=== PATIENT | female | born 1955 | race Two or more races ===

== ENCOUNTER 2016-05-25 19:44 | Inpatient (IN) | payer MEDICAID ==
[~2016-05-25] VITALS: Ht 165.1 cm; Wt 119.7 kg
[2016-05-25] MEDS ORDERED: EPINEPHRINE 0.1MG/ML (1:10,000) 10ML SYR ONE (20:01)
[2016-05-25] MEDS ORDERED: PROPOFOL 10MG/ML 100ML 100 ML IV ONE (20:15)
[2016-05-25] MEDS ORDERED: PIPERACILLIN/TAZ 3.375G PREMIX 50 ML IV ONE (20:15)
[2016-05-25] MEDS ORDERED: SODIUM CHLORIDE 0.9% 1000ML BAG (SEPSIS BOLUS) IV ONE ×2 (20:15→21:15)
[2016-05-25 20:38] LABS: BASOPHILS % 0.4 % (0.0-2.0); DIFFERENTIAL COMMENT 0; EOSINOPHILS % 1.1 % (0.0-5.0); HEMATOCRIT. 38.5 % (36.0-48.0); HEMOGLOBIN. 11.4 g/dL (12.0-16.0); LYMPHOCYTES % 40.3 % (20.0-50.0); MEAN CORPUSCULAR HEMOGLOBIN 25.5 pg (28.0-32.0); MEAN CORPUSCULAR HGB CONC 29.7 g/dL (31.0-37.0); MEAN CORPUSCULAR VOLUME 85.8 fL (81.0-99.0); MEAN PLATELET VOLUME 9.2 fl (7.4-10.4); MONOCYTES % 2.7 % (2.0-8.0); NEUTROPHILS % 55.5 % (40.0-76.0); PLATELET 168 x1000/uL (130-400); RED BLOOD CELL COUNT 4.48 mill/uL (4.2-5.4); RED CELL DISTRIBUTION WIDTH 17.6 % (11.6-14.6); WHITE BLOOD COUNT 8.6 x1000/uL (4.5-11.0)
[2016-05-25] MEDS ORDERED: SODIUM BICARBONATE 8.4% 1 MEQ/ML 50ML SYR IV ONE (20:40)
[2016-05-25 20:43] LABS: INR 1.3; PROTHROMBIN TIME 13.3 sec
[2016-05-25] MEDS ORDERED: NOREPINEPHRINE 4 MG in DEXT 5% WATER 246 ML IV ONE (20:45)
[2016-05-25] MEDS ORDERED: CALCIUM CHLORIDE 1GM/10ML SYR IV ONE (20:47)
[2016-05-25 20:54] LABS: ALANINE AMINOTRANSFERASE 28 IU/L (13-61); ANION GAP 26; CALCIUM 9.6 mg/dL (8.5-10.1); CARBON DIOXIDE 22 mEq/L (21-32); CHLORIDE 105 mEq/L (98-107); ETHANOL BLOOD < 10 mg/dL; INDEX HEMOLYSI 2 (1-3); INDEX ICTERIC 1 (1-4); INDEX LIPEMIC 1 (1-3); LIPASE 373 IU/L (73-393); NT PRO B-TYPE NATRIURETIC PEP 2507 pg/mL (5-125); TROPONIN I < 0.02 ng/mL (0.00-0.04); UREA NITROGEN BLOOD 11 mg/dL (7-21); eGFR > 60 mL/min (>60)
[2016-05-25] MEDS ORDERED: NOREPINEPHRINE 4 MG in DEXT 5% WATER 246 ML IV NR (21:00)
[2016-05-25 21:08] LABS: LACTIC ACID 14.9 mmol/L (0.4-2.0)
[2016-05-25 23:03] LABS: BG BASE EXCESS -9.6 mmol/L (-2.0-2.0); BG CARBOXYHEMOGLOBIN 0.6 % (0.5-1.5); BG DEOXYHEMOGLOBIN 8.7 % (0.0-5.0); BG FRACTION INSPIRED OXYGEN 100; BG HCO3 ACT 21.1 mmol/L (22.0-26.0); BG METHEMOGLOBIN 0.3 % (0.0-1.5); BG OXYGEN SATURATION 91.2 % (92.0-98.5); BG OXYHEMOGLOBIN 90.4 % (94.0-97.0); BG PCO2 71.8 mmHg (35.0-45.0); BG PH 7.087 (7.350-7.450); BG PO2 80.4 mmHg (75.0-100.0); BG SAMPLE SITE RIGHT RADIAL; BG TIDAL VOLUME(mL) 500 mL; BG TOTAL HEMOGLOBIN 12.5 g/dL (12.0-18.0); BG VENT MODE VENT - A/C; BG VENT RATE 14 set
[2016-05-25] MEDS ORDERED: DEXAMETHASONE 10MG/ML 1ML VIAL IV ONE (23:15)
[2016-05-25] MEDS ORDERED: SODIUM CHLORIDE 0.9% 1,000 ML IV SCH (23:40)
[2016-05-25] MEDS ORDERED: IPRATROPIUM/ALBUTEROL 0.5-3(2.5)MG/3ML NEB INH PRN (23:45)
[2016-05-25] MEDS ORDERED: ONDANSETRON HCL 4MG/2ML VIAL IV PRN (23:45)
[2016-05-26] VITALS (83 sets, daily range): BP systolic 46–133; BP diastolic 17–103
[2016-05-26 00:05] LABS: MAGNESIUM 2.5 mg/dL (1.8-2.4)
[2016-05-26] MEDS ORDERED: PROPOFOL 10MG/ML 100ML 100 ML IV NR (00:45)
[2016-05-26] MEDS: PIPERACILLIN/TAZ 3.375G PREMIX 50 ML IV SCH ×2 (03:18→13:03)
[2016-05-26] MEDS: NOREPINEPHRINE 16 MG in DEXT 5% WATER 250 ML IV SCH ×2 (03:18→10:57)
[2016-05-26] MEDS: LEVETIRACETAM 500 MG in SODIUM CHLORIDE 0.9% 100 ML IV SCH ×2 (03:18→16:00)
[2016-05-26] MEDS ORDERED: VANCOMYCIN 1 G PREMIX 200 ML IV SCH (04:00)
[2016-05-26 05:35] LABS: HEMATOCRIT. 38.2 % (36.0-48.0); HEMOGLOBIN. 11.2 g/dL (12.0-16.0); MEAN CORPUSCULAR HEMOGLOBIN 25.5 pg (28.0-32.0); MEAN CORPUSCULAR HGB CONC 29.4 g/dL (31.0-37.0); MEAN CORPUSCULAR VOLUME 86.8 fL (81.0-99.0); MEAN PLATELET VOLUME 7.8 fl (7.4-10.4); PLATELET 135 x1000/uL (130-400); RED BLOOD CELL COUNT 4.41 mill/uL (4.2-5.4); RED CELL DISTRIBUTION WIDTH 18.7 % (11.6-14.6); WHITE BLOOD COUNT 15.7 x1000/uL (4.5-11.0)
[2016-05-26 05:51] LABS: DIFFERENTIAL COMMENT 1
[2016-05-26] MEDS ORDERED: SODIUM BICARBONATE 8.4% 1 MEQ/ML 50ML SYR IV SCH (06:30)
[2016-05-26 06:37] LABS: CREATINE KINASE MB FRACTION 14.6 ng/mL (0.5-3.6)
[2016-05-26 06:38] LABS: CHLORIDE 115 mEq/L (98-107); INDEX HEMOLYSI 1 (1-3); INDEX ICTERIC 1 (1-4); INDEX LIPEMIC 1 (1-3)
[2016-05-26 06:56] LABS: ALBUMIN 2.5 g/dL (3.4-5.0); ANION GAP 18; CALCIUM 8.9 mg/dL (8.5-10.1); CARBON DIOXIDE 19 mEq/L (21-32); UREA NITROGEN BLOOD 15 mg/dL (7-21); eGFR 48 mL/min (>60)
[2016-05-26 06:57] LABS: ALANINE AMINOTRANSFERASE 261 IU/L (13-61); HDL CHOLESTEROL 44 mg/dL (40-59); LDL CHOLESTEROL 66 mg/dL (5-100); TRIGLYCERIDE 52 mg/dL (0-150)
[2016-05-26] MEDS ORDERED: DOPAMINE 400MG PREMIX 250 ML IV PRN (07:00)
[2016-05-26 07:19] LABS: THYROID STIMULATING HORMONE 0.82 uIU/mL (0.36-3.74)
[2016-05-26] MEDS: PHENYLEPHRINE 40 MG in DEXT 5% WATER 246 ML IV PRN ×4 (07:25→18:50)
[2016-05-26] MEDS: SODIUM BICARBONATE 150 MEQ in DEXTROSE 5% WATER 1,000 ML IV SCH ×2 (07:36→13:02)
[2016-05-26 08:31] LABS: PLATELET ESTIMATE NORMAL
[2016-05-26 08:32] LABS: ANISOCYTOSIS 1+
[2016-05-26] MEDS ORDERED: PANTOPRAZOLE SODIUM 40 MG/VIAL IV SCH (09:00)
[2016-05-26] MEDS ORDERED: ENOXAPARIN 40MG/0.4ML SYR SUBCUT SCH (09:00)
[2016-05-26] MEDS ORDERED: POTASSIUM CHLORIDE INJ 40 MEQ in DEXT 5% WATER 250 ML IV SCH (09:00)
[2016-05-26 09:58] LABS: BG BASE EXCESS -8.7 mmol/L (-2.0-2.0); BG CARBOXYHEMOGLOBIN 0.9 % (0.5-1.5); BG DEOXYHEMOGLOBIN 1.7 % (0.0-5.0); BG FRACTION INSPIRED OXYGEN 100; BG METHEMOGLOBIN 0.2 % (0.0-1.5); BG OXYGEN SATURATION 98.3 % (92.0-98.5); BG OXYHEMOGLOBIN 97.2 % (94.0-97.0); BG PCO2 55.4 mmHg (35.0-45.0); BG PH 7.176 (7.350-7.450); BG PO2 127.5 mmHg (75.0-100.0); BG SAMPLE SITE RIGHT RADIAL; BG TIDAL VOLUME(mL) 500 mL; BG TOTAL HEMOGLOBIN 12.4 g/dL (12.0-18.0); BG VENT MODE VENT - A/C; BG VENT RATE 20 set
[2016-05-26] MEDS: VASOPRESSIN 10 UNIT in SODIUM CHLORIDE 0.9% 99.5 ML IV PRN ×3 (10:17→17:52)
[2016-05-26] MEDS ORDERED: DIPHENHYDRAMINE 50MG/ML VIAL IV PRN (11:45)
[2016-05-26] MEDS ORDERED: DIPHENHYDRAMINE 50MG/ML VIAL IV SCH (11:45)
[2016-05-26] MEDS ORDERED: LINEZOLID 600 MG PREMIX 300 ML IV SCH (13:00)
[2016-05-26 16:14] LABS: CALCIUM 8.6 mg/dL (8.5-10.1); CREATINE KINASE MB FRACTION 26.3 ng/mL (0.5-3.6)
[2016-05-26 16:27] LABS: HEPATITIS B SURFACE ANTIGEN NEGATIVE
[2016-05-26 16:54] LABS: HEPATITIS C VIR.AB 0.02 INDEXVAL (0.00-0.80)
[2016-05-26 16:55] LABS: HEPATITIS B CORE AB IGM NEGATIVE
[2016-05-26 16:56] LABS: HEPATITIS A AB IGM NEGATIVE (NEGATIVE)
[2016-05-26] MEDS ORDERED: VANCOMYCIN 750 MG PREMIX 150 ML IV SCH (21:00)
[2016-05-29 10:57] LABS: BG BASE EXCESS -13.1 mmol/L (-2.0-2.0); BG CARBOXYHEMOGLOBIN 0.5 % (0.5-1.5); BG DEOXYHEMOGLOBIN 8.9 % (0.0-5.0); BG FRACTION INSPIRED OXYGEN 100; BG HCO3 ACT 16.6 mmol/L (22.0-26.0); BG METHEMOGLOBIN 0.3 % (0.0-1.5); BG OXYHEMOGLOBIN 90.3 % (94.0-97.0); BG PH 7.097 (7.350-7.450); BG PIP 53 cmH2O; BG PO2 78.6 mmHg (75.0-100.0); BG SAMPLE SITE RIGHT BRACHIAL; BG TIDAL VOLUME(mL) 500 mL; BG TOTAL HEMOGLOBIN 11.9 g/dL (12.0-18.0); BG VENT MODE VENT - A/C; BG VENT RATE 20 set
== END 2016-05-26 20:35 | disposition expired | DRG 720 ==
LOC: ER 19:45 → EDBD 22:22 → MICUSO 22:22
PROVIDERS: ADMIT Internal Medicine; ATTEND Internal Medicine
PROC: 5A1935Z Respiratory Ventilation, Less than 24 Consecutive Hours (ICD-10-PCS; principal; 2016-05-25)
PROC: 0BH18EZ Insertion of Endotracheal Airway into Trachea, Via Natural or Artificial Opening Endoscopic (ICD-10-PCS; 2016-05-25)
PROC: 06HM33Z Insertion of Infusion Device into Right Femoral Vein, Percutaneous Approach (ICD-10-PCS; 2016-05-25)
DX: A41.9 Sepsis, unspecified organism (principal); I21.4 Non-ST elevation (NSTEMI) myocardial infarction; I46.9 Cardiac arrest, cause unspecified; J96.01 Acute respiratory failure with hypoxia; J96.02 Acute respiratory failure with hypercapnia; J69.0 Pneumonitis due to inhalation of food and vomit; G93.1 Anoxic brain damage, not elsewhere classified; E87.2 Acidosis; D69.6 Thrombocytopenia, unspecified; K72.00 Acute and subacute hepatic failure without coma; I11.9 Hypertensive heart disease without heart failure; D68.9 Coagulation defect, unspecified; E66.01 Morbid (severe) obesity due to excess calories; C55 Malignant neoplasm of uterus, part unspecified; D64.9 Anemia, unspecified; E11.9 Type 2 diabetes mellitus without complications; I44.7 Left bundle-branch block, unspecified; I48.91 Unspecified atrial fibrillation; J32.4 Chronic pansinusitis; K52.9 Noninfective gastroenteritis and colitis, unspecified; K74.60 Unspecified cirrhosis of liver; M19.90 Unspecified osteoarthritis, unspecified site; B95.5 Unspecified streptococcus as the cause of diseases classified elsewhere; R56.9 Unspecified convulsions; E87.0 Hyperosmolality and hypernatremia; M62.82 Rhabdomyolysis; N17.9 Acute kidney failure, unspecified; N20.0 Calculus of kidney; R65.21 Severe sepsis with septic shock; Z66 Do not resuscitate; Z92.21 Personal history of antineoplastic chemotherapy; Z92.3 Personal history of irradiation; Z68.41 Body mass index [BMI] 40.0-44.9, adult
CPT/HCPCS: 31500; 31525; 36415; 36556; 36600; 51702; 70450; 71010; 74176; 78615; 80048; 80053; 80061; 82375; 82550; 82553; 82805; 82962; 83605; 83690; 83735; 83880; 84443; 84484; 85025; 85610; 86705; 86709; 86803; 86850; 86900; 87040; 87340; 93005; 93308; 94002; 96365; 96367; 96375; 99291; A6261; A9512; C9113; G0482; J0171; J1100; J1200; J1265; J1650; J1953; J2020; J2370; J2543; J2704; J3370; J3480; J3490; J7030; J7050; J7060; J7070